=== PATIENT | male | born 1955 | race Native Hawaiian/Other Pacific Islander ===

== ENCOUNTER 2017-12-12 12:18 | Emergency (ER) | payer SELFPAY ==
[2017-12-12 12:45] VITALS: BP 128/67
[2017-12-12 13:40] LABS: Bacteria,Urine 1+ /HPF (Negative); Bilirubin,Urine NEG (Negative); Blood,Urine SM (Negative); Color,Urine Yellow (Yellow); Mucus,Urine FEW /HPF
[2017-12-12] MEDS ORDERED: NACL 0.9% 1000 ML 1,000 ML IV ONE ×2 (13:51)
--- NOTE | 2017-12-12 13:53 | Emergency Department Report ---
Blank Doc - Documentation Documentation: Patient is a 62-year-old male who is presenting with hyperglycemia. Patient states he's been out of his Glucophage for approximately 2 weeks. Patient states he is weak and fatigued dry mouth with polyuria polydipsia. Patient denies any nausea vomiting or abdominal pain. Patient removed to a treatment room follow-up on his labs and undergo therapies to decrease his blood sugar. Patient given 2 L of normal saline as well as 7 units of a reg Insulin
[2017-12-12 14:21] LABS: Basophils # (Auto) 0.1 K/mm3 (0.0-0.1); Basophils % (Auto) 0.9 % (0.0-1.8); Hematocrit 37.1 % (35.5-45.6); Hemoglobin 12.6 gm/dl (11.8-15.2); Lymphocytes # (Auto) 0.6 K/mm3 (1.2-5.4); Mean Corpuscular HGB Conc 34 % (32-34); Mean Corpuscular Hemoglobin 29 pg (28-32); Mean Corpuscular Volume 87 fl (84-94); Monocytes # (Auto) 0.9 K/mm3 (0.0-0.8); Monocytes % (Auto) 7.6 % (0.0-7.3); Platelet Count 205 K/mm3 (140-440); Red Blood Count 4.29 M/mm3 (3.65-5.03); Red Cell Distribution Width 12.5 % (13.2-15.2)
[2017-12-12 14:49] LABS: BUN/Creatinine Ratio 27; Blood Urea Nitrogen 32 mg/dL (9-20); Calcium 8.7 mg/dL (8.4-10.2); Hemolysis Index 2
[2017-12-12] MEDS ORDERED: K-DUR PO ONE (15:41)
--- NOTE | 2017-12-12 16:10 | Emergency Department Report ---
ED General Adult HPI - General Chief complaint: Hyperglycemia Stated complaint: WEAKNESS Time Seen by Provider: 12/12/17 13:47 Source: patient Mode of arrival: Ambulatory Limitations: No Limitations - History of Present Illness Initial comments: This is a 62 y.o. male that presents with generalized weakness and thirst for 2 days. Patient reports feeling terrible for the past week but the past 2 days are worse. He have a history of HTN and DM2. He has not been taking medication for the past 2 weeks because he can't afford to purchase insulin. He doesn't have a car to get to [employer] to get it at a lower cost. He lost blood pressure bottle while moving. Denies visual changes, SOB, fever, and body aches. -: week(s) (2) Severity scale (0 -10): 7 Associated Symptoms: weakness, other (thirsty) Treatments Prior to Arrival: none - Related Data Previous Rx's Medication Instructions Recorded Last Taken Type Amoxicillin/Potassium Clav 1 each PO BID 7 Days #14 tablet 12/12/17 Unknown Rx [Augmentin 875-125 Tablet] Insulin Regular, Human [Novolin R] 15 units SC ACHS #1 vial 12/12/17 Unknown Rx metFORMIN [Glucophage] 500 mg PO BID #60 tablet 12/12/17 Unknown Rx Allergies Allergy/AdvReac Type Severity Reaction Status Date / Time No Known Allergies Allergy Unverified 12/12/17 12:45 ED Review of Systems ROS: Stated complaint: WEAKNESS Other details as noted in HPI Constitutional: weakness. denies: chills, fever Respiratory: denies: cough, shortness of breath, wheezing Cardiovascular: denies: chest pain, palpitations Endocrine: see HPI, increased hunger, increased thirst. denies: excessive sweating, flushing, intolerance to cold, intolerance to heat, increased urine, unexplained weight gain Gastrointestinal: denies: abdominal pain, nausea, diarrhea Musculoskeletal: denies: back pain, joint swelling, arthralgia Neurological: denies: headache, weakness, paresthesias Psychiatric: denies: anxiety, depression ED Past Medical Hx - Past Medical History Hx Hypertension: Yes Hx Diabetes: Yes - Social History Smoking Status: Never Smoker Substance Use Type: None - Medications Home Medications: Home Medications Medication Instructions Recorded Confirmed Last Taken Type Amoxicillin/Potassium Clav 1 each PO BID 7 Days #14 tablet 03/01/18 Unknown Rx [Augmentin 875-125 Tablet] Insulin Regular, Human [Novolin R] 15 units SC ACHS #1 vial 12/12/17 Unknown Rx metFORMIN [Glucophage] 500 mg PO BID #60 tablet 12/12/17 Unknown Rx ED Physical Exam - General Limitations: No Limitations General appearance: alert, in no apparent distress - Respiratory Respiratory exam: Present: normal lung sounds bilaterally. Absent: respiratory distress, wheezes, rales, rhonchi, stridor - Cardiovascular Cardiovascular Exam: Present: regular rate, normal rhythm, normal heart sounds. Absent: systolic murmur, diastolic murmur, rubs, gallop - GI/Abdominal GI/Abdominal exam: Present: soft, normal bowel sounds - Neurological Exam Neurological exam: Present: alert, oriented X3 - Psychiatric Psychiatric exam: Present: normal affect, normal mood - Skin Skin exam: Present: warm, dry, intact, normal color. Absent: rash, diaphoretic , erythema, urticaria, petechiae ED Course Vital Signs 12/12/17 12:40 Temperature 97.8 F Pulse Rate 103 H Blood Pressure 128/67 O2 Sat by Pulse 99 Oximetry ED Medical Decision Making - Lab Data Result diagrams: 12/12/17 14:03 12/12/17 14:03 - Medical Decision Making This is a 62 y.o. male that presents with generalized weakness and thirsty for 1 day. History of DM2 & HTN. Patient off novolin and Glucophage for a few days. He has not been able to afford medication and off for 2 weeks. Patient was examined by me. Obtained BMP, CBC, UA, & blood gas. Review labs. WBC's 11.4. Glucose 419 on admission. Given Regular insulin 7 units, NS 1L bolus x 2 once. Glucose 268 after treatment and reports feeling better. Start glucophage 500 mg po bid, novolin 15 units AC and HS and follow up with PCP in 1 week. Start Augmentin 875/125 mg po bid x 7 days. Discussed plan with patient and agreed to plan. No further questions noted by the patient. Discharged home in stable condition. Follow up with PCP in 24-72 hours. Critical care attestation.: If time is entered above; I have spent that time in minutes in the direct care of this critically ill patient, excluding procedure time. 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 Low blood sugar is often accompanied by symptoms such as tachycardia, sweating, shakiness, intense hunger, or confusion, and must be dealt with promptly by eating a carbohydrate such as apple or drink juice. After self-treatment, blood sugar should be checked if possible. Return to ER or f/u with ER promptly is blood glucose drops below 70 or greater than 150 so that therapy may be adjusted. Eat a carbohydrate snack prior to exercise if blood glucose is less than 100. Follow up with Primary Care Provider Dr. Bryant at [facility] in 24- 72 days. Prescriptions: Amoxicillin/Potassium Clav [Augmentin 875-125 Tablet] 1 each PO BID 7 Days #14 tablet Insulin Regular, Human [Novolin R] 15 units SC ACHS #1 vial metFORMIN [Glucophage] 500 mg PO BID #60 tablet Referrals: PJ BRYANT MD [Referring] - 3-5 Days [facility] [Outside] - 3-5 Days [facility] [Outside] - 3-5 Days [facility] [Outside] - 3-5 Days Forms: Work/School Release Form(ED) Time of Disposition: 18:08 Print Language: ITALIAN
[2017-12-12] MEDS ORDERED: AUGMENTIN 875 MG PO ONE (18:11)
== END 2017-12-12 18:57 | disposition home or self-care (01) ==
LOC: ED 12:18
DX: E11.65 Type 2 diabetes mellitus with hyperglycemia (principal); J06.9 Acute upper respiratory infection, unspecified; I10 Essential (primary) hypertension; Z79.4 Long term (current) use of insulin
CPT/HCPCS: 36415; 80048; 81001; 82805; 82962; 85025; 96361; 96374; 99284; J7030; J1815